=== PATIENT | male | born 1995 | race Hispanic/Latino ===

== ENCOUNTER 2017-03-23 18:24 | Observation (INO) | payer BC ==
[2017-03-23 18:56] VITALS: RESP 16; O2SAT 100
[2017-03-23] MEDS ORDERED: Iohexol 240 (50 ml) PO ONE (19:29)
[2017-03-23] MEDS ORDERED: Sodium Chloride 0.9% 1,000 ML IV STA (19:30)
--- NOTE | 2017-03-23 19:33 | ED PDOC ---
HPI: Abdomen Time Seen by Provider: 03/23/17 19:03 Chief Complaint (Nursing): Abdominal Pain History Per: Patient History/Exam Limitations: no limitations Onset/Duration Of Symptoms: Days Outside of [place] travel?: No Current Symptoms Are (Timing): Still Present Context: Food Pain Scale Rating Of: 6 Location Of Pain/Discomfort: RLQ, LLQ Quality Of Discomfort: Cramping Associated Symptoms: Fever, Chills, Nausea, Vomiting, Diarrhea Additional History Per: Patient Additional Complaint(s): No PMHx/PSHx p/w RLQ/LLQ pain, n/v/d, fevers and chills x 3 days, states he ate a [place] buffet and had symptoms hours after. States he's had >20 episodes of watery/yellow diarrhea. Today he had 1-2 episodes "bile"-like vomit. Referred from for "dehydration". No recent travel or sick contacts. Past Medical History Reviewed: Historical Data, Nursing Documentation, Vital Signs Vital Signs: Last Vital Signs Temp 98.0 F 03/23/17 18:54 Pulse 113 H 03/23/17 18:54 Resp 16 03/23/17 18:54 BP 102/70 03/23/17 18:54 Pulse Ox 100 03/23/17 19:37 - Medical History PMH: No Chronic Diseases - Surgical History Surgical History: No Surg Hx - Family History Family History: States: No Known Family Hx - Home Medications Home Medications: Ambulatory Orders Medication Instructions Recorded Ciprofloxacin [Cipro] 500 mg PO BID 7 Days 03/23/17 Ondansetron [Zofran] 4 mg PO Q8H #12 tab 03/23/17 metroNIDAZOLE [Flagyl] 500 mg PO BID 7 Days 03/23/17 - Allergies Allergies/Adverse Reactions: Allergies Allergy/AdvReac Type Severity Reaction Status Date / Time Penicillins Allergy ANAPHYLAXIS Verified 03/23/17 18:54 Review of Systems ROS Statement: Except As Marked, All Systems Reviewed And Found Negative Constitutional: Positive for: Fever, Chills Gastrointestinal: Positive for: Nausea, Vomiting, Abdominal Pain, Diarrhea Physical Exam - Reviewed Nursing Documentation Reviewed: Yes Vital Signs Reviewed: Yes - Physical Exam Appears: Positive for: Well, Non-toxic, No Acute Distress Head Exam: Positive for: ATRAUMATIC, NORMAL INSPECTION, NORMOCEPHALIC Skin: Positive for: Normal Color, Warm, DRY Eye Exam: Positive for: EOMI, Normal appearance, PERRL ENT: Positive for: Normal ENT Inspection Neck: Positive for: Normal, Painless ROM Cardiovascular/Chest: Positive for: Regular Rate, Rhythm Respiratory: Positive for: CNT, Normal Breath Sounds Gastrointestinal/Abdominal: Positive for: Soft, Tenderness (LLQ and RLQ tenderness, LLQ>RLQ, +rebound), Rebound Back: Positive for: Normal Inspection Extremity: Positive for: Normal ROM Neurologic/Psych: Positive for: Alert, Oriented - Laboratory Results Result Diagrams: 03/23/17 19:38 03/23/17 19:38 - ECG O2 Sat by Pulse Oximetry: 100 Pulse Ox Interpretation: Normal Medical Decision Making Medical Decision Making: A/P: No PMHX p/w n/v/d/abd pain, pt. tachycardic, appears dry and dehydrated, possibly colitis, given abdominal exam with rebound, will get CT to r/o complicated colitis (abscess, fat stranding, etc.) 11PM: HR improved, patient tolerating PO. Will d/c home w/ ABx. Told to f/u w/ PMD next week for repeat bloodwork, explained K was slightly elevated and Na slightly decreased, likely because of dehydration and GE. Will likely improve on its own with oral rehydration and ABx. Pt. understands to f/u or return to ER for wosrening symptoms: fever, chills, worsening n/v/d/abd pain or other concerning symptoms. IMPRESSION: Findings are consistent with colitis. This may be infectious or inflammatory in nature.Clinical correlation is advised ED OBSERVATION Discharge: Yes Date of observation admission: 03/23/17 Time of observation admission: 19:36 - Observation admission statement Patient is being placed in observation because:: Length of time of workup. - Goals of Observation Goals of observation are:: Proper workup and diagnosis and treatment plan. Disposition - Clinical Impression Clinical Impression: Colitis - Disposition Disposition: Routine/Home Disposition Time: 23:15 Condition: IMPROVED
[2017-03-23] MEDS ORDERED: Iohexol 240 (50 ml) ONE (19:34)
[2017-03-23 19:52] LABS: BASO % 0.2 % (0.0-2.0); EOS % 0.1 % (0.0-4.0); HEMATOCRIT 46.7 % (35.0-51.0); LYMPH # 1.5 K/uL (1.0-4.3); LYMPH % 11.1 % (20.0-40.0); MEAN CELL VOLUME 86.3 fl (80.0-94.0); MEAN CORPUSCULAR HEMOGLOBIN 29.4 pg (27.0-31.0); MEAN CORPUSCULAR HGB CONC 34.1 g/dL (33.0-37.0); MEAN PLATELET VOLUME 8.1 fl (7.2-11.7); MONO # 3.6 K/uL (0.0-0.8); MONO % 25.7 % (0.0-10.0); NEUT # 8.7 K/uL (1.8-7.0); NEUT % 62.9 % (50.0-75.0); NRBC % 0.3 % (0.0-0.0); PLATELET COUNT 209 K/uL (130-400); RED CELL DISTRIBUTION WIDTH 13.5 % (11.5-14.5); WHITE BLOOD COUNT 13.9 K/uL (4.8-10.8)
[2017-03-23 20:12] LABS: ALB/GLOB RATIO 1.4 (1.0-2.1); ALKALINE PHOSPHATASE 59 U/L (38-126); ALT/SGPT 33 U/L (21-72); AST/SGOT 50 U/L (17-59); BILIRUBIN,TOTAL 1.1 mg/dl (0.2-1.3); BLOOD UREA NITROGEN 19 mg/dl (9-20); CALCIUM 9.6 mg/dL (8.4-10.2); CARBON DIOXIDE 25 mmol/L (22-30); CHLORIDE 90 mmol/L (98-107); GFR AFRICAN-AMERICAN > 60; GLUCOSE,RANDOM 136 mg/dL (75-110); SODIUM 128 mmol/l (132-148); TOTAL PROTEIN 7.8 G/DL (6.3-8.2)
[2017-03-23 20:21] LABS: LIPASE < 10 U/L (23-300); POTASSIUM 5.1 MMOL/L (3.6-5.0)
[2017-03-23 21:14] LABS: RBC URINE 1 /hpf (0-3); URINE BACTERIA RARE (<OCC); URINE BILIRUBIN NEGATIVE (NEGATIVE); URINE BLOOD SMALL (NEGATIVE); URINE COLOR YELLOW (YELLOW); URINE GLUCOSE (UA) NEG (Normal); URINE KETONE TRACE mg/dL (NEGATIVE); URINE LEUKOCYTE ESTERASE NEG Leu/uL (Negative); URINE PROTEIN 100 mg/dL (NEGATIVE); URINE UROBILINOGEN 0.2-1.0 mg/dL (0.2-1.0); WBC URINE 1 /hpf (0-5)
[2017-03-23 21:26] LABS: NEUTROPHIL 63 % (42-75); REACTIVE LYMPHOCYTES 1 % (0-0); TOTAL CELLS COUNTED 100
[2017-03-23] MEDS ORDERED: Iohexol 300 100 ML IJ ONE (21:41)
[2017-03-23] MEDS ORDERED: Sodium Chloride 0.9% 50 ML IV ONE (21:41)
[2017-03-23 23:19] VITALS: BP 125/80; PULSE 85; TEMP 97.9
--- NOTE | 2017-03-24 11:16 | CT ---
PROCEDURE: CT Abdomen and Pelvis with contrast HISTORY: n/v/d, LLQ>RLQ pain COMPARISON: None. TECHNIQUE: Contrast dose: 90 mL of Omnipaque 300. Axial and reformatted coronal and sagittal CT images of the abdomen and pelvis were obtained after IV and oral contrast administration. Radiation dose: Total exam DLP = 518.54 mGy-cm. This CT exam was performed using one or more of the following dose reduction techniques: Automated exposure control, adjustment of the mA and/or kV according to patient size, and/or use of iterative reconstruction technique. FINDINGS: LOWER THORAX: Unremarkable. LIVER: Mild hepatomegaly is noted. GALLBLADDER AND BILE DUCTS: Unremarkable. PANCREAS: Unremarkable. No gross lesion or ductal dilatation. SPLEEN: Unremarkable. ADRENALS: Unremarkable. No mass. KIDNEYS AND URETERS: Unremarkable. No hydronephrosis. No solid mass. VASCULATURE: Unremarkable. No aortic aneurysm. BOWEL: Moderate wall thickening seen in the transverse and descending colon consistent with colitis. The differential diagnosis includes infection or inflammatory colitis. No evidence of small bowel obstruction. No evidence of pneumatosis. There is also distal ileum and terminal ileum [id number] wall thickening. APPENDIX: No evidence of appendicitis. PERITONEUM: Unremarkable. No free fluid. No free air. LYMPH NODES: Mildly enlarged mesenteric lymph nodes are seen in the mid and lower abdomen. BLADDER: Unremarkable. REPRODUCTIVE: Unremarkable. BONES: No acute fracture. OTHER FINDINGS: None. IMPRESSION: Moderate transverse and descending colon wall thickening consistent with colitis. Suspicious for distal ileum wall thickening. Correlate clinically for possible Crohn's disease/inflammatory bowel disease. Otherwise no evidence of acute pathology in the abdomen and pelvis.
== END 2017-03-23 22:58 | disposition home or self-care (01) ==
LOC: H.ER 18:24 → H.EROBSV 19:30
PROVIDERS: ADMIT Emergency Medicine; ATTEND Emergency Medicine
DX: K52.9 Noninfective gastroenteritis and colitis, unspecified (principal); E86.0 Dehydration; Z88.0 Allergy status to penicillin
CPT/HCPCS: 74177; 80053; 81003; 83690; 85025; 87040; 87045; 87086; 96361; 96374; 96375; 96376; 99283; G0378; J1885; J2405; J7040; Q9966; Q9967